=== PATIENT | male | born 1945 | race Caucasian/White ===

== ENCOUNTER 2023-04-02 12:04 | Outpatient (CLI) | payer MEDICARE, SELFPAY ==
--- NOTE | ~2023-04-02 | MMUS_ITS ---
EXAMINATION: MM diagnostic julio LT w carol, US breast LT complete HISTORY: Left breast soreness. TECHNIQUE: Additional 3-D tomosynthesis images of the left breast were performed and synthetic 2-D im ages were generated. CAD analysis was submitted and interpreted. High resolution complete left breast ultrasound was performed. COMPARISON: None BREAST PARENCHYMAL COMPOSITION: The breasts are heterogeneously dense, which may obscure small masses FINDINGS: MAMMOGRAPHIC FINDINGS: There are no suspicious masses, calcifications or architectural distortion in the left breast to sugg est malignancy. ULTRASOUND: Complete US of all 4 quadrants of the left breast and retroareolar region was reviewed. Normal hetero geneous echotexture without focal solid or cystic mass. Mildly prominent subareolar ducts are noted. IMPRESSION: 1. No evidence for malignancy in the left breast. Gynecomastia. 2. Recommend follow-up clinical management for gynecomastia. BI-RADS Category 2: Benign finding(s). Reviewed, dictated and finalized at location A. [employer] INSPECTOR IMPRESSION: 1. No evidence for malignancy in the left breast. Gynecomastia. 2. Recommend follow-up clinical management for gynecomastia. BI-RADS Category 2: Benign finding(s).
== END 2023-04-02 12:05 | disposition home or self-care (01) ==
LOC: ANHIMG 12:07
PROVIDERS: PCP Family Medicine; Visit Provider Family Medicine
DX: N63.20 Unspecified lump in the left breast, unspecified quadrant (principal); N64.4 Mastodynia
CPT/HCPCS: 76641; 77061; 77065; G0279

== ENCOUNTER 2023-05-07 11:00 | Outpatient (RCR) | payer MEDICARE, SELFPAY ==
--- NOTE | 2023-03-09 15:57 | OPREHPOC ---
Outpatient Therapy Plan of Care This is a Multidisciplinary Plan of Care that may contain components documented by all disciplines (PT, OT, and ST.) PT Problem 1 PT Problem #1 Knowledge Deficit PT Goal 1 Goal Pt will be independent in HEP Pt will verbalize understanding of diagnosis and prognosis Target Visit 8 PT Problem 2 PT Problem #2 Impaired Range of Motion PT Goal 1 Goal Pt will demo lumbar ROM 50% or greater without pain Target Visit 16 PT Problem 3 PT Problem #3 Impaired Functional ADLs PT Goal 1 Goal Pt will demo improved cervical mobility allowing him to shave in the morning with minimal to no discomfort Target Visit 16 PT Problem 4 PT Problem #4 Impaired Gait PT Goal 1 Goal Pt will demo improved gait pattern without AD and with confidence to return to PLOF Target Visit 16 PT Problem 5 PT Problem #5 Pain PT Goal 1 Goal Pt will report greatest pain level at 3/10 or less to improve ADLs and activities Target Visit 8 PT Goal 2 Goal Pt will report resolution of pain to return to PLOF Target Visit 16
--- NOTE | 2023-03-09 15:57 | PTOPDC ---
Assessment and note entered by Lary Shepherd, PT Evaluation Information Assessment Status Evaluation Diagnosis cervicalgia, sciatica Therapy condition abnormal posture, oth abnormalities of gait and mobility Subjective Information Pain is a little higher on the right side than sciatica. Will shoot down leg when moves it. States right knee is also collapsing, was walking and right knee would give out. Saw Doctor on 02/24. Pt reports can walk if keeping knee stiff but is afraid because it gives out. Reports has spurs on the right knee a couple years ago. Has had a foot drop on the RLE for ~20 years Also has two collapsed discs in the lumbar but opted not to have surgery on this. States thinks is his lumbar spine that is causing knee problem Neck is an ongoing pain that has not improved. States cervical fusion in 2017 cage but reports the surgery was not successful. Had had pain in RUE and partially paralyzed RUE and numbness. Reports did therapy for this and it never helped. Has been progressively getting like a neck cramping. Has to lay in a specific position for pain. Has the cramping more when standing or sitting but not when laying down. Also had carpal tunnel that didn't work. Reported Pain Level Pain Score 0,0: Self Report Additional Pain Score Comments Will get pain in right thigh and have knee collapse at the same time but no pain in knee joint Assessment PT Clinical Summary Pt presents for cervicalgia and sciatica for evaluation. Pt reports significant past medical history including pacemaker, cervical fusion, RUE radiculopathy/myelopathy, lumbar disc degeneration , left knee rebuild 20 years ago, and diabetes. Pt reports has been walking with a cane the last few weeks due to right knee buckling, but also greatest complaint with cervical spine is cramping in the neck musculature with sitting and standing activities at times. Evaluation shows multilevel deficits including functional leg length discrepancies, pelvic obliquity, lumbar alignment deficit, postural abnormality, stiffness of cervical spine. Pt will benefit from physical therpay to address deficits and improve function with less pain.
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
--- NOTE | 2023-04-10 15:05 | PTOPPROG ---
Assessment and note entered by Lary Shepherd, PT Assessment Status Progress Reports Diagnosis cervicalgia, sciatica, weakness Subjective Information Neck feels a lot better than when I started , is a lot looser , making a crunching , states a lot less spasms of the neck and can move out of them easily. Self perceived improvement: 60-70% better Back seldomly will get a twinge in the back but will not shoot down the leg. Will get pain with walking in the outside of the hip . After last session with massage, pain in the outside of the leg stayed about the same . Is trying to walk more normal with right knee. Has confidence will not give out. Right knee if standing and presses outside of knee against something will have pain in the knee. Legs feel better, hasn't had enough strength training yet but they feel better/stronger Self-perceived improvement: 50% is confident without walking without a cane now Has not heard from DME provider for AFO Assessment PT Clinical Summary Pt has attended therapy consistently for cervicalgia and sciatica. Pt reports pain in RLE he came in with is resolved, however does have a different discomfort in posterior right hip that partially goes down outside of leg. Pt also has been consistent with HEP including application of heel lift into left shoe. reports great improvement with cervicalgia and discomfort, demo' s improved scapular positioning and posture. No change in cervical ROM however is appropriate considering the multilevel fusion past medical history. Cont to demo abnormal posture at lumbar spine/hips with flexed postures in ambulation. Pt' s therapy up until now has been focused on reducing pain. Current plan will focus on improving strength and ROM for sustained benefits. Plan of Care Interventions Gait Training,Hot Pack/Cold Pack,Manual Therapy, Neuro Re-education,Patient/Caregiver Educati, Therapeutic Activities,Therapeutic Exercise PT Services Indicated Yes Treatment Frequency and cont POC 1-2x weekly x 4 weeks Duration These treatments will address the objective and functional deficits as defined above. The patient will be advanced safely and appropria
--- NOTE | 2023-05-07 11:55 | PTOPDC ---
Assessment and note entered by Lary Shepherd, PT Assessment Status Discharge Diagnosis cervicalgia, sciatica Subjective Information Pt reports 75% in the neck and 80-85% improvement in the low back/right leg reports feels 100% happy States is more stable with walking which is the best thing from therapy. Still has some right knee instability at times, still has neck cramping at times but is better. States hardly ever gets pain down the leg anymore Home exercises are going well. Reported Pain Level Pain Score 0,0: Self Report Assessment PT Clinical Summary Pt has attended therapy consistently for cervicalgia, and right sided sciatica. Pt reports feeling 75% improved on cervical spine, 80-85% improved on right leg and low back, and reports being 100% happy with results . Pt has met all goals, has been educated on follow up maintenance of progress and when to return to therapy. Thus patient is being discharged at this time for completion of therapy plan of care. Plan of Care PT Services Indicated No
== END 2023-05-07 15:17 | disposition home or self-care (01) ==
LOC: ANHHIPT 11:00
PROVIDERS: PCP Family Medicine; Visit Provider Family Medicine
DX: M54.31 Sciatica, right side (principal); M54.2 Cervicalgia
CPT/HCPCS: 97110; 97112; 97140; 97163; 97530; 97750